=== PATIENT | female | born 1980 | race Caucasian/White ===

== ENCOUNTER → 2017-08-16 | Outpatient (CLI) | payer OTHER ==
--- NOTE | 2017-08-16 16:14 | REP ---
Chest two views HISTORY: Chest pain Comparison: 02/02/2015 The lungs are clear. The heart is normal in size. The pulmonary vasculature is normal in appearance. The bony structure is intact. IMPRESSION: No acute disease. Signed by Hung Jones MD 08/16/2017 04:06 P
--- NOTE | 2017-08-16 16:30 | REP ---
LUMBAR SPINE, FIVE VIEWS: HISTORY: Back pain. There is no acute fracture or subluxation. The L4-5 intervertebral disc is decreased in height consistent with disc degeneration. Osteophytes are present on L2 through L5. The facet joints are normal in appearance. IMPRESSION: Degenerative change as described above. Signed by Hung Jones MD 08/16/2017 04:43 P
--- NOTE | 2017-08-16 16:33 | REP ---
CERVICAL SPINE, SEVEN VIEWS: HISTORY: Neck pain. There is no acute fracture or subluxation. The C5-6 intervertebral disc is decreased in height consistent with disc degeneration. The neural foramina are patent. IMPRESSION:Degenerative change as described above. Signed by Hung Jones MD 08/16/2017 04:43 P
[2017-08-16 20:39] LABS: INR 1.05
--- NOTE | 2017-08-17 02:32 | REP ---
Clinical: Pain. Technique: Neutral and frog lateral views of the bilateral hips. Findings: Osseous structures and joint spaces are symmetric. Mild increased sclerosis along the acetabular roof and very subtle superior joint space narrowing should be correlated with physical examination. No further degenerative changes. No osteophyte or spurring. No periarticular calcifications. Surrounding soft tissues normal. Impression: Mild symmetric degenerative changes as noted above. Signed by Justus Rollins MD 08/17/2017 02:24 A
--- NOTE | 2017-08-17 03:25 | REP ---
Clinical: Pain. Technique: AP angled and bilateral oblique views of the sacroiliac joints. Findings: The sacroiliac joints are symmetric, intact, and normal. No periarticular sclerosis or erosive changes are appreciated. No osteophyte or spurring. No evidence for subluxation. Impression: Normal symmetric sacroiliac joints. Signed by Justus Rollins MD 08/17/2017 03:16 A
[2017-08-19 00:07] LABS: Lyme Disease IgG/IgM Antibodie <0.91 ISR (0.00-0.90); Lyme Disease IgM Ab Quantitati <0.80 index (0.00-0.79)
== END ==
LOC: M WUC 14:51
PROVIDERS: ATTEND Internal Medicine Rheumatology
DX: Z51.81 Encounter for therapeutic drug level monitoring (principal); Z79.899 Other long term (current) drug therapy; R53.83 Other fatigue; K90.0 Celiac disease; E55.9 Vitamin D deficiency, unspecified; R07.9 Chest pain, unspecified; M51.36 Other intervertebral disc degeneration, lumbar region; M16.0 Bilateral primary osteoarthritis of hip; M50.322 Other cervical disc degeneration at C5-C6 level

== ENCOUNTER → 2018-06-16 | Outpatient (REF) | payer OTHER | LOC: M SFHCLERA 17:14 | DX: R30.0 Dysuria (principal) ==

== ENCOUNTER → 2018-08-01 | Outpatient (REF) | payer OTHER | LOC: M SFHCLERA 09:39 | DX: J02.9 Acute pharyngitis, unspecified (principal) ==

== ENCOUNTER 2019-10-19 11:29 | Emergency (ER) | payer OTHER ==
[~2019-10-19] VITALS: Ht 165.1 cm; Wt 86.4 kg
[2019-10-19] MEDS ORDERED: ADV250INH (11:47)
[2019-10-19] MEDS ORDERED: PROAAER10 (11:47)
[2019-10-19] MEDS ORDERED: VITA1CAP25 PO (11:47)
[2019-10-19] MEDS ORDERED: MONT10TA2 PO (11:47)
[2019-10-19] MEDS ORDERED: MORPHINE 2 MG/ML 1ML VIAL (J2270) IV STA (12:08)
[2019-10-19 12:11] LABS: BASO % 0.3 % (0.0-1.0); EOS % 0.3 % (0.0-3.0); HEMATOCRIT 40.3 % (36.0-47.0); HEMOGLOBIN 12.9 g/dl (12.0-15.5); LYMPH # 1.2 10^3/uL (1.5-5.0); LYMPH % 16.3 % (24.0-44.0); MEAN CORPUSCULAR HEMOGLOBIN 26.5 pg (27.0-33.0); MEAN CORPUSCULAR VOLUME 82.9 fl (80.0-96.0); MONO # 0.4 10^3/uL (0.0-0.8); MONO % 5.7 % (0.0-5.0); NEUTROPHILS # 5.7 10^3/uL (1.5-8.5); PLATELET COUNT, AUTOMATED 293 10^3/uL (150-450); RED BLOOD COUNT 4.86 10^6/uL (4.00-5.40); WHITE BLOOD COUNT 7.4 10^3/uL (4.0-10.0)
[2019-10-19 12:30] LABS: ALBUMIN 3.6 GM/DL (3.2-5.2); ALT/SGPT 23 U/L (12-78); BILIRUBIN,DIRECT < 0.1 MG/DL (0.0-0.2); BILIRUBIN,TOTAL 0.5 MG/DL (0.2-1.0); BLOOD UREA NITROGEN 15 MG/DL (7-18); CALCIUM LEVEL 8.7 MG/DL (8.5-10.1); CARBON DIOXIDE LEVEL 21 MEQ/L (21-32); CHLORIDE LEVEL 109 MEQ/L (98-107); CREATININE FOR GFR 0.95 MG/DL (0.55-1.30); GLOMERULAR FILTRATION RATE > 60.0 (>58); GLUCOSE, FASTING 108 MG/DL (70-100); LIPASE 129 U/L (73-393); POTASSIUM SERUM 3.5 MEQ/L (3.5-5.1); SODIUM LEVEL 140 MEQ/L (136-145); TOTAL PROTEIN 7.2 GM/DL (6.4-8.2)
[2019-10-19] MEDS ORDERED: MELO7.5T35 PO (14:45)
[2019-10-19 15:00] VITALS: BP 118/71
--- NOTE | 2019-10-20 09:19 | REP ---
REASON: Severe left lower quadrant pain. PRIORS: None. Secondary to the patient's complaints of pain ovarian Doppler was obtained. Transvesical and transvaginal imaging was obtained. The uterus measures 9.6 x 4.7 x 6.5 cm. The endometrial echo complex is within normal limits measuring 3 mm in thickness. There is no free fluid in the cul-de-sac. The right ovary measures 3.4 x 1.6 x 1.6 cm and is within normal limits with an RI of 0.43. The left ovary measures 2.9 x 1.6 x 1.7 cm and is within normal limits with an RI of 0.41. Urinary bladder is empty. IMPRESSION:Pelvic ultrasonography is within normal limits. Electronically Signed by Jackson Mena DO 10/20/2019 09:28 A
--- NOTE | 2019-10-20 13:22 | REP ---
REASON: Left sided flank pain. COMPARISON: None. The lung bases are clear. There is no nephroureterolithiasis, hydronephrosis, or hydroureter. There are no urinary bladder calcifications. Limited evaluation of the solid intraabdominal organs and gallbladder show no gross abnormalities. Limited evaluation of the pancreas and adrenal glands show no gross abnormalities. Limited evaluation of the abdominal aorta and paraaortic regions showed no gross abnormalities. The intraabdominal and intrapelvic bowel loops and their mesenteries are within normal limits. There is no free fluid or free air seen in the abdomen or pelvis. There is no evidence of an intraabdominal or intrapelvic mass or adenopathy. There is a round smoothly marginated 1.5 cm sized nodule in the posterior right hemipelvic adipose of uncertain etiology and of doubtful significance. Bone window technique throughout the examination shows the osseous structures to be within normal limits. IMPRESSION:There is no evidence of acute intraabdominal or intrapelvic disease. Findings as described above. There is a small right hemipelvic nodule outside the pelvic lymph node chain and of doubtful significance, however, followup is suggested. Electronically Signed by Jackson Mena DO 10/20/2019 02:09 P
--- NOTE | 2019-10-21 07:54 | ED PDOC ---
Post-Departure Follow-Up helio fp faxed fomral report of ct abd/p for fu Pretty Baeza MD Oct 21, 2019 07:54
== END 2019-10-19 15:05 | disposition home or self-care (01) ==
LOC: EDBD 11:29 → M ED 11:29
DX: R10.31 Right lower quadrant pain (principal); R10.32 Left lower quadrant pain; N94.6 Dysmenorrhea, unspecified; R19.07 Generalized intra-abdominal and pelvic swelling, mass and lump; J45.909 Unspecified asthma, uncomplicated; Z79.51 Long term (current) use of inhaled steroids; Z79.899 Other long term (current) drug therapy
CPT/HCPCS: 36415; 74176; 76856; 80048; 80076; 81000; 81001; 83690; 84702; 85025; 87086; 96374; 99284; J2270

== ENCOUNTER → 2022-04-14 | Outpatient (CLI) | payer OTHER ==
[~2022-04-14] MED LIST: ADV250INH; MELO7.5T35 PO; MONT10TA97 PO; PROAAER10; VITA1CAP25 PO
[2022-04-14 13:43] LABS: BASO % 0.6 % (0.0-1.0); EOS % 0.6 % (0.0-3.0); HEMATOCRIT 39.1 % (36.0-47.0); HEMOGLOBIN 12.6 g/dl (12.0-15.5); LYMPH # 1.6 10^3/uL (1.5-5.0); LYMPH % 32.1 % (24.0-44.0); MEAN CORPUSCULAR HEMOGLOBIN 27.9 pg (27.0-33.0); MEAN CORPUSCULAR HGB CONC 32.2 g/dl (32.0-36.5); MEAN CORPUSCULAR VOLUME 86.7 fl (80.0-96.0); MONO # 0.3 10^3/uL (0.0-0.8); MONO % 5.8 % (2.0-8.0); NEUTROPHILS % 60.7 % (36.0-66.0); PLATELET COUNT, AUTOMATED 242 10^3/uL (150-450); RED BLOOD COUNT 4.51 10^6/uL (4.00-5.40)
[2022-04-14 14:27] LABS: ALBUMIN 3.9 GM/DL (3.2-5.2); ALT/SGPT 26 U/L (12-78); BILIRUBIN,TOTAL 0.7 MG/DL (0.2-1.0); BLOOD UREA NITROGEN 12 MG/DL (7-18); CALCIUM LEVEL 9.1 MG/DL (8.5-10.1); CARBON DIOXIDE LEVEL 26 MEQ/L (21-32); CHLORIDE LEVEL 108 MEQ/L (98-107); CREATININE FOR GFR 0.64 MG/DL (0.55-1.30); FOLATE 8.2 NG/ML (>5.4); FREE THYROXINE INDEX 4.5 % (1.3-4.8); GLOMERULAR FILTRATION RATE > 60.0 (>58); GLUCOSE, FASTING 83 MG/DL (70-100); POTASSIUM SERUM 4.1 MEQ/L (3.5-5.1); RHEUMATOID FACTOR QUANT < 10.0 IU/ML (<15.0); SODIUM LEVEL 140 MEQ/L (136-145); T UPTAKE 35 % (30-39); THYROXINE (T4) 12.9 UG/DL (4.5-12.0); TOTAL PROTEIN 6.9 GM/DL (6.4-8.2); VITAMIN B12 LEVEL 288 PG/ML (247-911)
[2022-04-14 14:54] LABS: ERYTHROCYTE SEDIMENTATION RATE 11 mm/hr (0-20)
== END ==
LOC: M PLALAB 11:38
PROVIDERS: ATTEND Psychiatry & Neurology Neurology
DX: E07.9 Disorder of thyroid, unspecified (principal); E53.8 Deficiency of other specified B group vitamins; Z13.89 Encounter for screening for other disorder

== ENCOUNTER → 2022-06-30 | Outpatient (REF) | payer OTHER | LOC: M LAB REF 17:32 | PROVIDERS: ATTEND Internal Medicine Endocrinology, Diabetes & Metabolism | DX: E04.1 Nontoxic single thyroid nodule (principal) ==

== ENCOUNTER → 2022-11-10 | Outpatient (CLI) | payer OTHER | LOC: M WHC 08:41 | PROVIDERS: ATTEND Nurse Practitioner Primary Care | DX: Z12.31 Encounter for screening mammogram for malignant neoplasm of breast (principal) ==

== ENCOUNTER → 2023-12-04 | Outpatient (CLI) | payer OTHER | LOC: M WHC 12:45 | PROVIDERS: ATTEND Nurse Practitioner Primary Care | DX: Z12.31 Encounter for screening mammogram for malignant neoplasm of breast (principal) ==

== ENCOUNTER → 2023-12-15 | Outpatient (CLI) | payer OTHER | LOC: M SLEEP 20:00 | PROVIDERS: ATTEND Physician Assistant | DX: R40.0 Somnolence (principal) ==

== ENCOUNTER → 2024-08-30 | Outpatient (CLI) | payer OTHER ==
[2024-08-30 13:24] LABS: FOLATE 10.7 NG/ML (>5.4); THYROID STIMULATING HORMONE 1.137 uIU/ML (0.55-4.78)
[2024-08-30 13:25] LABS: FREE T4 1.3 NG/DL (0.89-1.76)
== END ==
LOC: M LAB 12:04
PROVIDERS: ATTEND Psychiatry & Neurology Neurology
DX: E07.9 Disorder of thyroid, unspecified (principal); E53.8 Deficiency of other specified B group vitamins; R26.89 Other abnormalities of gait and mobility

== ENCOUNTER → 2025-01-13 | Outpatient (CLI) | payer OTHER ==
[~2025-01-13] MED LIST changes: -ADV250INH; +ADVA1AER9
== END ==
LOC: M WHC 12:49
PROVIDERS: ATTEND Nurse Practitioner Primary Care
DX: Z12.31 Encounter for screening mammogram for malignant neoplasm of breast (principal)

== ENCOUNTER → 2025-10-21 | Outpatient (CLI) | payer OTHER | LOC: M WUC 15:40 | DX: M79.672 Pain in left foot (principal) ==